=== PATIENT | male | born 1950 | race Caucasian/White ===

== ENCOUNTER 2016-09-02 09:20 | Emergency (ER) | payer OTHER ==
[2016-09-02 09:27] VITALS: TEMP 98.2
--- NOTE | 2016-09-02 09:31 | EDPHY ---
H & P Stated Complaint: Clunked head 10 days ago,no LOC;no sxs until this morning,now dizzy Time Seen by Provider: 09/02/16 09:30 - Personal History Current Tetanus Diphtheria and Acellular Pertussis (TDAP): Yes Tetanus Vaccine Date: 2011 - Medical/Surgical History Other PMH: sleep apnea. cholesterol - Social History Smoking Status: Never smoked Constitutional: Initial Vital Signs Temperature (C) 36.8 C 09/02/16 09:22 Heart Rate 95 09/02/16 09:22 Respiratory Rate 18 09/02/16 09:22 Blood Pressure 137/99 H 09/02/16 09:22 O2 Sat (%) 96 09/02/16 09:22 O2 Delivery Mode Room Air Allergies/Adverse Reactions: HOT PEPPERS Allergy (Severe, Uncoded 01/28/12 08:19) EXTREMELY HOT PEPPERS CAUSE ANALPHYLAXIS PESTICIDES Allergy (Severe, Uncoded 01/28/12 08:19) ANALPHYLAXIS Home Medications: Medication Instructions Recorded Aspirin [Aspirin 325 mg (OTC)] 0.5 tab PO DAILY06 01/25/12 Simvastatin [Zocor 40 mg (RX)] 40 mg PO DAILY18 01/25/12 Meclizine HCl 25 mg PO TID #14 tablet 09/02/16 Medical Decision Making ED Course/Re-evaluation: CHIEF COMPLAINT: Dizziness HISTORY OF PRESENT ILLNESS: The patient is a 66 y/o male, with a history of vertigo, complaining of acute room-spinning dizziness when moving to the left this morning after waking. He says while lying in bed this morning he "moved to the left side and was totally disoriented." This episode resolved after about 10 seconds. He describes it as "100% intense" and endorses room-spinning. After it dissipated, he was able to stand up and walk to the bathroom without recurrence. He can only recreate the sensation by turning his head to the left. He notes 10 days ago a piece of steel struck him on the forehead while he was working on his car. He denies LOC, significant headache, nausea, vomiting, or any associated symptoms besides facial bruising following the trauma for the last 10 days. REVIEW OF SYSTEMS: A 10 point review of systems was performed and is negative with the exception of the elements mentioned in the history of present illness. PHYSICAL EXAM: HR, BP, O2 Sat, RR. Temp noted General Appearance: Alert, well hydrated, appropriate, and non-toxic appearing. Head: Healing hematoma to right forehead. No scalp tenderness or injury Eyes: Pupils equal, round, reactive to light and accommodation, EOMI, no trauma , no injection. Bilateral periorbital ecchymosis. Ears: Clear bilaterally, no perforation, normal landmarks Nose: Atraumatic, no rhinorrhea, clear. Throat: There is no erythema or exudates, no lesions, normal tonsils, mucus membranes moist. Neck: Supple, 2+ carotid upstroke, nontender, no lymphadenopathy. Respiratory: No retractions, no distress, no wheezes, and no accessory muscle use. Lungs are clear to auscultation bilaterally. Cardiovascular: Regular rate and rhythm, no murmurs, rubs, or gallops. Bilateral carotid, radial, dorsalis pedis, and posterior tibial pulses intact. Good capillary refill all extremities. Gastrointestinal: Abdomen is soft, nontender, non-distended, no masses, no rebound, no guarding, no peritoneal signs. Musculoskeletal: Normal active ROM of all extremities, atraumatic. Neurological: Alert, appropriate, and interactive. The patient has normal DTRs and non-focal cranial nerves, motor, sensory, and cerebellar exam. Skin: No rashes, good turgor, no nodules on palpation. Past medical history: Vertigo, sleep apnea, hypercholesteremia Past surgical history: Denies Family history: Noncontributory Social history: Lives in [place] DIAGNOSTICS/PROCEDURES/CRITICAL CARE TIME: Study: CT of the Head Indication: Head trauma 10 days ago, dizziness today Results: CT scan of the head was obtained. The results of the study are negative. The study was read by the radiologist, Dr. Elmore. I viewed the images myself on the PACS system. DIFFERENTIAL DIAGNOSIS: The differential diagnosis for the patient's dizziness included but was not limited to peripheral and central causes of vertigo, orthostatic causes including dehydration, cardiogenic and neurogenic causes, and blood loss. MEDICAL DECISION MAKING: This is a 66 y/o male presenting with non-resolved symptoms of benign paroxysmal positional vertigo. He gets extremely dizzy when he turns his head to the left. He notes facial trauma from 10 days ago that was not associated with any notable symptoms until today. No other complaints. Plan for head CT. 1055: Head CT is negative. Reevaluated patient and discussed imaging. I am able to reproduce his symptoms by turning his head to the left. This supports diagnosis of positional vertigo. Patient will be discharged home with script for Meclizine and standard return precautions. He's been referred to his PCP and ENT for follow up if needed. He agrees with plan. Departure - Departure Disposition: Home, Routine, Self-Care Clinical Impression: Vertigo Condition: Good Instructions: Vertigo (ED) Additional Instructions: 1. Take Meclizine as prescribed when needed for symptoms of vertigo. 2. Follow up with your primary care provider or Dr. Dotson, ENT, for symptoms not improved over the next 2-3 days 3. Return to the ED for severe pain, uncontrollable vomiting, vision changes, or other worsening of condition. Referrals: Lc Yusuf MD [Primary Care Provider] - As per Instructions Jennifer Dotson MD [Medical Doctor] - As per Instructions Prescriptions: Meclizine HCl 25 mg PO TID #14 tablet Report Scribed for: Eliezer Salas Report Scribed by: Tamiko Traylor Date of Report: 09/02/16 Time of Report: 09:48
[2016-09-02 11:10] VITALS: BP 155/91; PULSE 78; RESP 16; O2SAT 93
--- NOTE | 2016-09-02 11:31 | CT ---
CT Head Without Contrast History: Recent trauma. No loss of consciousness. Dizziness. Technique: Standard noncontrast head CT protocol utilizing axial images acquired through the [facility]vari um. Images were reconstructed down to 1.25-mm slice thickness as well. Radiation dose technique was u tilized. Findings: Soft tissue hematoma is seen in the right frontal scalp. No evidence for a skull fracture. No evidence for intracranial hemorrhage. There is moderate periventricular and deep hemispheric white matter change. No evidence for acute infarct or mass. The ventricles, sulci, and cisterns are within normal limits for the patient's age. No evidence for an extraaxial fluid collection. Impression: Moderate periventricular and deep hemispheric white matter change which is nonspecific an d can be seen with small vessel ischemic disease. No evidence for acute intracranial abnormality. Rig ht frontal scalp hematoma. Results called to Dr. Eliezer Salas.
== END 2016-09-02 11:09 | disposition home or self-care (01) ==
DX: R42 Dizziness and giddiness (principal); Z79.82 Long term (current) use of aspirin

== ENCOUNTER → 2018-03-03 | Outpatient (CLI) | payer OTHER, MEDICARE | LOC: BMCIMAGING 15:33 | PROVIDERS: ATTEND Internal Medicine | DX: R07.89 Other chest pain (principal); M51.34 Other intervertebral disc degeneration, thoracic region; R91.1 Solitary pulmonary nodule ==